=== PATIENT | male | born 1985 | race Caucasian/White ===

== ENCOUNTER 2021-04-17 10:47 | Emergency (ER) | payer OTHER ==
[~2021-04-17] VITALS: Ht 175.3 cm; Wt 54.4 kg
[2021-04-17] MEDS ORDERED: TESSALON PERLE100 MG PO (13:03)
[2021-04-17] MEDS ORDERED: PROMETHAZI6.25 MG/5 PO (13:03)
[2021-04-17 13:12] VITALS: BP 119/68
== END 2021-04-17 13:13 | disposition home or self-care (01) ==
LOC: M.ERS 10:47
DX: J06.9 Acute upper respiratory infection, unspecified (principal); F17.210 Nicotine dependence, cigarettes, uncomplicated